=== PATIENT | male | born 1955 | race Caucasian/White ===

== ENCOUNTER 2018-02-05 21:59 | Emergency (ER) | payer OTHER ==
[~2018-02-05] VITALS: Ht 188 cm; Wt 149.7 kg
--- OUTSIDE RECORDS SUMMARY | 2018-02-05 22:02 | XMS REPORT | Summary of Care ---
Author Author [facility] Address Unknown Phone Unavailable Encounter HQ Esperanza(FIN) [id number] Date(s): 05/20/17 - 05/20/17 [place] [address] [facility], [address] [place] [address]- [phone] Discharge Disposition: Home or Self Care Attending Physician: Albaro Gilbert DO Vital Signs Most recent to 1 oldest [Reference Range]: Height 187.96 cm (05/20/17 4:28 PM) Temperature Oral 98.0 DegF [96.4-99.1 DegF] (05/20/17 4:28 PM) Blood Pressure 158/94 mmHg [90-140/60-90 mmHg] *HI* (05/20/17 4:28 PM) Peripheral Pulse 76 bpm Rate [60-100 bpm] (05/20/17 4:28 PM) Weight 156.818 kg (05/20/17 4:28 PM) Body Mass Index 44.39 m2 (05/20/17 4:28 PM) Problem List Condition Effective Dates Status Health Status Informant Diabetes(Confirmed) Active Diabetes(Confirmed) Resolved Dyslipidemia(Confirm Active ed) Dyslipidemia(Confirm Resolved ed) HTN Resolved (hypertension)(Confi rmed) Obesities, Active morbid(Confirmed) Allergies, Adverse Reactions, Alerts Substance Reaction Severity Status morphine Active Medications Azithromycin 5 Day Dose Pack 250 mg oral tablet See Instructions, Take 2 tablets by mouth the first day then 1 tablet by mouth d ays 2-5., X 5 day, # 6 tab, 0 Refill(s), Pharmacy: [id number] Start Date: 05/20/17 Stop Date: 05/25/17 Status: Completed Results No data available for this section Immunizations No data available for this section Procedures Procedure Date Related Diagnosis Body Site Status Appendectomy Completed Hernia repair Completed Tonsillectomy Completed Social History Social History Type Response Smoking Status Never smoker; Exposure to Tobacco Smoke None; Cigarette Smoking Last 365 Days No; Reg Smoking Cessation Counseling No entered on: 05/20/17 Assessment and Plan No data available for this section
--- OUTSIDE RECORDS SUMMARY | 2018-02-05 22:02 | XMS REPORT | Summary of Care ---
Author Author [facility] Organization [facility] Address Unknown Phone Unavailable Encounter HQ Hannah_liyah(FIN) [id number] Date(s): 11/11/16 - 11/11/16 [facility] [address] [place] [address]- Discharge Disposition: Home or Self Care Attending Physician: Jacque Herrmann MD Vital Signs No data available for this section Problem List Condition Effective Dates Status Health Status Informant Diabetes(Confirmed) Active Diabetes(Confirmed) Resolved Dyslipidemia(Confirm Active ed) Dyslipidemia(Confirm Resolved ed) HTN Resolved (hypertension)(Confi rmed) Obesities, Active morbid(Confirmed) Allergies, Adverse Reactions, Alerts Substance Reaction Severity Status morphine Active Medications No data available for this section Results No data available for this section Immunizations No data available for this section Procedures Procedure Date Related Diagnosis Body Site Appendectomy Hernia repair Tonsillectomy Social History Social History Type Response Smoking Status Never smoker; Exposure to Tobacco Smoke None; Cigarette Smoking Last 365 Days No; Reg Smoking Cessation Counseling No Assessment and Plan No data available for this section
--- OUTSIDE RECORDS SUMMARY | 2018-02-05 22:02 | XMS REPORT | Summary of Care ---
Author Author [facility] Organization [facility] Address Unknown Phone Unavailable Encounter HQ Encntr_alias(FIN) [id number] Date(s): 05/16/17 - 05/17/17 [place] [address] [facility], [address] [place] [address]- [phone] Vital Signs No data available for this section Problem List Condition Effective Dates Status Health Status Informant Diabetes(Confirmed) Active Diabetes(Confirmed) Resolved Dyslipidemia(Confirm Active ed) Dyslipidemia(Confirm Resolved ed) HTN Resolved (hypertension)(Confi rmed) Obesities, Active morbid(Confirmed) Allergies, Adverse Reactions, Alerts Substance Reaction Severity Status morphine Active Medications losartan 100 mg oral tablet 100 mg=1 tab, PO, Daily, # 90 tab, 1 Refill(s), Pharmacy: [facility] [id number] [facility] Start Date: 05/19/17 Status: Ordered Results No data available for this section [...]
--- OUTSIDE RECORDS SUMMARY | 2018-02-05 22:02 | XMS REPORT | Summary of Care ---
Author Author [facility] Organization [facility] Address Unknown Phone Unavailable Encounter HQ Encntr_alias(FIN) [id number] Date(s): 06/24/17 - 06/25/17 [place] [address] [facility], [address] [place] [address]- [phone] Vital Signs No data available for this section Problem List Condition Effective Dates Status Health Status Informant Diabetes(Confirmed) Active Diabetes(Confirmed) Resolved Dyslipidemia(Confirm Active ed) Dyslipidemia(Confirm Resolved ed) HTN Resolved (hypertension)(Confi rmed) Obesities, Active morbid(Confirmed) Allergies, Adverse Reactions, Alerts Substance Reaction Severity Status morphine Active Medications simvastatin 40 mg oral tablet 40 mg=1 tab, PO, Bedtime, # 90 tab, 1 Refill(s), Pharmacy: [facility] [id number] [facility] Start Date: 06/24/17 Status: Ordered Results No data available for [...]
--- OUTSIDE RECORDS SUMMARY | 2018-02-05 22:02 | XMS REPORT | Summary of Care ---
Author Author [facility] Organization [facility] Address Unknown Phone Unavailable Encounter HQ Encntr_alias(FIN) [id number] Date(s): 04/01/17 - 04/02/17 [place] [address] [facility], [address] [place] [address]- [phone] Vital Signs No data available for this section Problem List Condition Effective Dates Status Health Status Informant Diabetes(Confirmed) Active Diabetes(Confirmed) Resolved Dyslipidemia(Confirm Active ed) Dyslipidemia(Confirm Resolved ed) HTN Resolved (hypertension)(Confi rmed) Obesities, Active morbid(Confirmed) Allergies, Adverse Reactions, Alerts Substance Reaction Severity Status morphine Active Medications carvedilol 25 mg oral tablet See Instructions, # 180 tab, TAKE 1 TABLET BY MOUTH TWICE DAILY, Pharmacy: [id number] Start Date: 04/01/17 Status: Ordered metFORMIN 500 mg oral tablet See Instructions, # 180 tab, TAKE ONE TABLET BY MOUTH TWICE DAILY, Pharmacy: [facility] [id number] [facility] Start Date: 04/01/17 Status: Ordered Results No data available for [...]
--- OUTSIDE RECORDS SUMMARY | 2018-02-05 22:02 | XMS REPORT | Summary of Care ---
Author Author [facility] Primary [facility] Address Unknown Phone Unavailable Encounter HQ Encntr_alias(FIN) [id number] Date(s): 02/24/17 - 02/25/17 [facility] [address] [place] [address] [phone] Vital Signs No data available for this section Problem List Condition Effective Dates Status Health Status Informant Diabetes(Confirmed) Active Diabetes(Confirmed) Resolved Dyslipidemia(Confirm Active ed) Dyslipidemia(Confirm Resolved ed) HTN Resolved (hypertension)(Confi rmed) Obesities, Active morbid(Confirmed) Allergies, Adverse Reactions, Alerts Substance Reaction Severity Status morphine Active Medications Victoza 18 mg/3 mL subcutaneous injection See Instructions, INJECT 1.2MG UNDER THE SKIN DAILY IN THE MORNING., # 6 syr, 3 Refill(s), Pharmacy: [facility] [id number] [facility] Start Date: 02/24/17 Status: Ordered Results No data available for [...]
--- OUTSIDE RECORDS SUMMARY | 2018-02-05 22:02 | XMS REPORT | Continuity of Care Document ---
Author Author [facility] Address Unknown Phone Unavailable Problems Problem Status Onset Date Classification Date Reported Comments Source J20.9 Active 10/18/2016 [facility] Diabetes Active Problem 08/26/2017 [facility] Dyslipidemia Active Problem 08/26/2017 [facility] HTN (<span ID="[id number]">Confirmed</span>) Resolved Problem 08/26/2017 [facility] Obesities, morbid Active Problem 08/26/2017 [facility] Medications Medication Details Route Status Patient Instructions Ordering Provider Order Date Source NovoFine Insulin Pen [place] 32G 6 mm=1/4 inch See Instructions, MISC BID, # 2 box, 1 Refill(s) Active 07/23/2017 [facility] NovoFine Insulin Pen [place] 32G 6 mm=1/4 inch 1 ea, MISC, BID, # 100 ea, 3 Refill(s) Inactive 07/23/2017 [facility] simvastatin 40 mg oral tablet 40 mg=1 tab, PO, Bedtime, # 90 tab, 1 Refill(s), Pharmacy: [facility] Active 06/25/2017 [facility] Azithromycin 5 Day Dose Pack 250 mg oral tablet See Instructions, Take 2 tablets by mouth the first day then 1 tablet by mouth days 2-5., X 5 day, # 6 tab, 0 Refill(s), Pharmacy: [facility] No Longer Active 05/20/2017 [facility] losartan 100 mg oral tablet 100 mg=1 tab, PO, Daily, # 90 tab, 1 Refill(s), Pharmacy: [facility] Active 05/19/2017 [facility] Metformin hydrochloride 500 MG Oral Tablet See Instructions, # 180 tab, TAKE ONE TABLET BY MOUTH TWICE DAILY, Pharmacy: [facility] Active 04/01/2017 [facility] carvedilol 25 mg oral tablet See Instructions, # 180 tab, TAKE 1 TABLET BY MOUTH TWICE DAILY, Pharmacy: [facility] Active 04/01/2017 [facility] 3 ML liraglutide 6 MG/ML Prefilled Syringe [Victoza] See Instructions, INJECT 1.2MG UNDER THE SKIN DAILY IN THE MORNING., # 6 syr, 3 Refill(s), Pharmacy: [facility] [id number] [facility] Active 02/24/2017 [facility] Allergies, Adverse Reactions, Alerts Substance Category Reaction Severity Reaction type Status Date Reported Comments Source morphine Assertion Drug allergy Active [facility] Immunizations Immunization Date Given Site Status Last Updated Comments Source Results Order Name Results Value Reference Range Date Interpretation Comments Source Chest 2 views DX Chest 2 views DX Chest 2 views DX CLINICAL HISTORY: - J20.9 Acute bronchitis, unspecified COMPARISON: none FINDINGS: SUPPORT DEVICES: none LUNGS: Lungs are reasonably well inflated. No consolidation or any significant effusion. No pneumothorax is evident. CARDIOVASCULAR: Cardiac silhouette size is normal. Pulmonary vasculature is within normal limits. MEDIASTINUM/MERARY: Trachea is midline. No contour abnormality is noted. OSSEOUS STRUCTURES: No acute bony abnormality is noted. SOFT TISSUES: No significant soft tissue abnormality is noted. IMPRESSION: No acute abnormality is noted. SL: [id number] 11/11/2016 - - Read by: Finn Ferreira MD Dictated Date/time: 11/11/16 14:46 Electronically Signed by: Finn Ferreira MD 11/11/16 14:47 FINAL REPORT [facility] Vital Signs Vital Sign Value Date Comments Source Temperature Oral (F) 98.0 F 05/20/2017 [facility] Heart Rate 76 05/20/2017 [facility] Systolic (mm Hg) 158 05/20/2017 [facility] Diastolic (mm Hg) 94 05/20/2017 [facility] Height 187.96 cm 05/20/2017 [facility] BMI Calculated 44.39 05/20/2017 [facility] Weight 156.818 05/20/2017 [facility] Encounters Location Location Details Encounter Type Encounter Number Reason For Visit Attending Provider ADM Date DC Date Status Source Outpatient [id number] LUIZA COLINDRES 03/17/2015 Active [facility] Outpatient [id number] LUIZA COLINDRES 07/06/2015 Active [facility] Outpatient [id number] KYARA ISMAIL 12/08/2015 Active [facility] Outpatient [id number] LUIZA COLINDRES 08/29/2016 Active [facility] Outpatient [id number] LUIZA COLINDRES 10/01/2016 Active [facility] Outpatient [id number] MARKELLPR ISMAIL 11/11/2016 Active [facility] Outpatient [id number] [facility] 11/11/2016 11/12/2016 [facility] Primary [facility] Phone Message [id number] 02/24/2017 02/26/2017 [facility] Primary [facility] Phone Message [id number] 04/01/2017 04/03/2017 [facility] Primary [facility] Phone Message [id number] 05/16/2017 05/18/2017 [facility] Outpatient [id number] LUIZA PRANGLE 05/20/2017 Active [facility] Outpatient [id number] Luiza Prangle 05/20/2017 05/21/2017 [facility] Phone Message [id number] 06/24/2017 06/26/2017 [facility] Primary [facility] Phone Message [id number] 07/23/2017 07/25/2017 [facility] Primary [facility] Phone Message [id number] 07/23/2017 07/25/2017 [facility] Outpatient [id number] LUIZA PRANGLE 11/04/2017 Active [facility] Procedures Procedure Code Date Perfomer Comments Source Appendectomy [id number] [facility] Hernia repair [id number] [facility] Tonsillectomy [id number] [facility] Appendectomy [id number] [facility] Hernia repair [id number] [facility] Tonsillectomy [id number] [facility]
--- OUTSIDE RECORDS SUMMARY | 2018-02-05 22:02 | XMS REPORT | Summary of Care ---
Author Author [facility] Address Unknown Phone Unavailable Encounter HQ Encntr_alias(FIN) [id number] Date(s): 02/24/17 - 02/25/17 [facility] [address] [place] [address]- [phone] Vital Signs No data available for this [...] MORNING., # 6 syr, 3 Refill(s), Pharmacy: [facility] [id number] [facility] Start Date: 02/24/17 Status: Ordered [...] Reg Smoking Cessation Counseling No entered on: 11/11/16 Assessment and Plan No data available for this section
--- OUTSIDE RECORDS SUMMARY | 2018-02-05 22:02 | XMS REPORT | Summary of Care ---
Author Author [facility] Organization [facility] Address Unknown Phone Unavailable Encounter HQ Encntr_alias(FIN) [id number] Date(s): 07/23/17 - 07/24/17 [place] [address] [facility], [address] [place] [address]- [phone] Vital Signs No data available for this section Problem List Condition Effective Dates Status Health Status Informant Diabetes(Confirmed) Active Diabetes(Confirmed) Resolved Dyslipidemia(Confirm Active ed) Dyslipidemia(Confirm Resolved ed) HTN Resolved (hypertension)(Confi rmed) Obesities, Active morbid(Confirmed) Allergies, Adverse Reactions, Alerts Substance Reaction Severity Status morphine Active Medications NovoFine Insulin Pen [place] 32G 6 mm=1/4 inch See Instructions, MISC BID, # 2 box, 1 Refill(s) Start Date: 07/23/17 Status: Ordered Results No data available for [...]
--- OUTSIDE RECORDS SUMMARY | 2018-02-05 22:02 | XMS REPORT | Summary of Care ---
Author Author [facility] Organization [facility] Address Unknown Phone Unavailable Encounter HQ Encntr_alias(FIN) [id number] Date(s): 06/24/17 - 06/25/17 [place] [address] [facility], [address] [place] [address]- [phone] Vital Signs No data available for this section Problem List Condition Effective Dates Status Health Status Informant Diabetes(Confirmed) Active Diabetes(Confirmed) Resolved Dyslipidemia(Confirm Active ed) Dyslipidemia(Confirm Resolved ed) HTN Resolved (hypertension)(Confi rmed) Obesities, Active morbid(Confirmed) Allergies, Adverse Reactions, Alerts Substance Reaction Severity Status morphine Active Medications simvastatin 40 mg oral tablet 40 mg=1 tab, PO, Bedtime, # 90 tab, 1 Refill(s), Pharmacy: [facility] [id number] [facility] Start Date: 06/24/17 Status: Ordered [...]
--- OUTSIDE RECORDS SUMMARY | 2018-02-05 22:02 | XMS REPORT | Summary of Care ---
Author Author [facility] Organization [facility] Address Unknown Phone Unavailable Encounter HQ Encntr_alias(FIN) [id number] Date(s): 07/23/17 - 07/24/17 [place] [address] [facility], [address] [place] [address]- [phone] Vital Signs No data available for this section Problem List Condition Effective Dates Status Health Status Informant Diabetes(Confirmed) Active Diabetes(Confirmed) Resolved Dyslipidemia(Confirm Active ed) Dyslipidemia(Confirm Resolved ed) HTN Resolved (hypertension)(Confi rmed) Obesities, Active morbid(Confirmed) Allergies, Adverse Reactions, Alerts Substance Reaction Severity Status morphine Active Medications NovoFine Insulin Pen [place] 32G 6 mm=1/4 inch 1 ea, MISC, BID, # 100 ea, 3 Refill(s) Start Date: 07/23/17 Stop Date: 07/23/17 Status: Discontinued Results No data available for this section [...]
[2018-02-05] MEDS ORDERED: DIPHTH/TETANUS/ACEL. PERTUSSIS 0.5 ML SYR IM ONE (23:00)
--- NOTE | 2018-02-05 23:14 | Diagnostic Imaging Report ---
HAND 3 VIEW RT - HOPD Comparison: None Clinical history: Dogbite fourth digit Findings: Triscaphe degenerative changes. No fracture or dislocation. There is a 3 mm linear radiopaque density along the ventral aspect of the distal fourth digit. Vascular calcifications. Impression: Linear radiopaque density along the ventral soft tissues of the distal fourth digit. No acute bony abnormality. Signed by: Dr Aminah Rodrigues MD on 02/05/2018 11:11 PM
[2018-02-06] MEDS ORDERED: CLINDAMYCIN PHOS 900MG/ 50ML 50 ML IV SCH
[2018-02-06 00:12] VITALS: BP 146/86
== END 2018-02-06 00:31 | disposition home or self-care (01) ==
LOC: FSED 21:59
DX: S61.254A Open bite of right ring finger without damage to nail, initial encounter (principal); S61.256A Open bite of right little finger without damage to nail, initial encounter; W54.0XXA Bitten by dog, initial encounter; Y92.008 Other place in unspecified non-institutional (private) residence as the place of occurrence of the external cause; I10 Essential (primary) hypertension; E11.9 Type 2 diabetes mellitus without complications; E78.5 Hyperlipidemia, unspecified
CPT/HCPCS: 99284

== ENCOUNTER 2022-03-05 22:50 | Emergency (ER) | payer OTHER ==
[~2022-03-05] VITALS: Ht 188 cm; Wt 149.7 kg
[2022-03-05] MEDS ORDERED: ONDANSETRON HCL INJ 2MG/ML 2ML 2 MG/ML VIAL IV STA (22:58)
[2022-03-05] MEDS ORDERED: ASPIRIN 81 MG CHEW TAB PO ONE (23:00)
[2022-03-05] MEDS ORDERED: NITROGLYCERIN 2% OINT 1 GM PKT TOP ONE (23:00)
[2022-03-05 23:11] LABS: BASOPHILS % 0.1 % (0.0-1.0); HEMATOCRIT 45.6 % (38.2-49.6); HEMOGLOBIN 14.4 g/dL (14.0-18.0); LYMPHOCYTES # (AUTO) 0.5 (1.0-3.2); LYMPHOCYTES % 5.3 % (18.0-39.1); MEAN CORPUSCULAR HEMOGLOBIN 32.5 pg (28-32); MEAN CORPUSCULAR HGB CONC 31.6 g/dL (31-35); MEAN CORPUSCULAR VOLUME 102.9 fL (81-99); MONOCYTES # (AUTO) 0.1 (0.2-0.8); MONOCYTES % 1.4 % (4.4-11.3); NEUTROPHILS % 92.7 % (38.7-80.0); PLATELET COUNT 242 x10e3/uL (140-360); RED BLOOD COUNT 4.43 x10e6/uL (4.3-5.7); RED CELL DISTRIBUTION WIDTH 11.5 % (11.7-14.4)
[2022-03-05] MEDS ORDERED: ONDANSETRON HCL INJ 2MG/ML 2ML 2 MG/ML VIAL ONE (23:17)
[2022-03-05] MEDS ORDERED: ASPIRIN 81 MG CHEW TAB ONE (23:17)
[2022-03-05 23:31] LABS: ANION GAP 20.5 mmol/L (8-16); CALCIUM 9.7 mg/dL (8.4-10.2); CREATININE, SERUM 1.45 mg/dL (0.72-1.25); POTASSIUM 4.5 mmol/L (3.5-5.1)
[2022-03-05] MEDS ORDERED: TAMIFLU6 MG/1 ML PO (23:34)
[2022-03-05 23:38] LABS: CREATINE KINASE MB 2.9 ng/mL (0-5.0)
[2022-03-06 01:05] LABS: CREATINE KINASE MB 6.7 ng/mL (0-5.0)
[2022-03-06] MEDS ORDERED: CLOPIDOGREL BISULFATE 75 MG TAB ONE (01:29)
[2022-03-06] MEDS ORDERED: HEPARIN 25,000 UNIT DRIP IV ONE (01:29)
[2022-03-06] MEDS ORDERED: METOPROLOL TARTRATE INJ 1 MG/ML VIAL ONE (01:30)
[2022-03-06] MEDS ORDERED: HEPARIN SOD (PORCINE) 5,000 UNIT/ML VIAL ONE (01:41)
[2022-03-06 02:59] LABS: INR 0.93; PARTIAL THROMBOPLASTIN TIME 30.9 seconds (23.8-35.5); PROTHROMBIN TIME 12.7 seconds (11.9-14.5)
[2022-03-06] MEDS ORDERED: HEPARIN 25,000 UNIT 25,000 UNIT in DEXTROSE 5% 250ML 250 ML IV SCH (03:00)
[2022-03-06] MEDS ORDERED: HEPARIN SOD (PORCINE) 5,000 UNIT/ML VIAL IV ONE (03:00)
[2022-03-06] MEDS ORDERED: CLOPIDOGREL BISULFATE 75 MG TAB PO ONE (03:00)
[2022-03-06] MEDS ORDERED: METOPROLOL TARTRATE INJ 1 MG/ML VIAL IV ONE (03:00)
[2022-03-06 05:33] VITALS: BP 178/95
== END 2022-03-06 05:20 | disposition other institution (70) ==
LOC: ER 22:54
DX: R07.9 Chest pain, unspecified (principal); I21.4 Non-ST elevation (NSTEMI) myocardial infarction; E11.65 Type 2 diabetes mellitus with hyperglycemia; I10 Essential (primary) hypertension; R94.31 Abnormal electrocardiogram [ECG] [EKG]; Z20.822 Contact with and (suspected) exposure to COVID-19; Z85.818 Personal history of malignant neoplasm of other sites of lip, oral cavity, and pharynx
CPT/HCPCS: 36415; 71045; 80053; 80320; 82550; 82553; 82948; 83690; 84484; 85025; 85610; 85730; 93005; 99284; C9113; J1644; J2405; U0002

== ENCOUNTER 2024-10-01 12:33 | Emergency (ER) | payer OTHER ==
[~2024-10-01] VITALS: Ht 188 cm; Wt 148.5 kg
[~2024-10-01 12:33] MED LIST: TAMIFLU6 MG/1 ML PO
[2024-10-01] MEDS ORDERED: DEXAMETHASONE SOD PHOS INJ 4 MG/ML SDV ONE (13:12)
[2024-10-01] MEDS ORDERED: DIPHENHYDRAMINE HCL INJ 50 MG/ML VIAL ONE (13:13)
[2024-10-01] MEDS ORDERED: DEXAMETHASONE SOD PHOS 10 MG/1 ML VIAL IV ONE (13:15)
[2024-10-01] MEDS ORDERED: DIPHENHYDRAMINE HCL 25 MG CAP PO ONE (13:15)
[2024-10-01] MEDS: ALBUTEROL/IPRATROPIUM 3 ML NEB NEB ONE (13:32)
[2024-10-01] MEDS: FAMOTIDINE 20 MG/2 ML VIAL IV STA (13:33)
[2024-10-01] MEDS: DEXAMETHASONE SOD PHOS INJ 4 MG/ML SDV IV ONE (13:33)
[2024-10-01] MEDS: DIPHENHYDRAMINE HCL INJ 50 MG/ML VIAL IV ONE (13:34)
[2024-10-01 13:47] VITALS: PULSE 75; RESP 18
[2024-10-01] MEDS ORDERED: LOSARTAN POTAS100 MG PO (13:55)
[2024-10-01] MEDS ORDERED: RYBELSUS14 MG (13:55)
[2024-10-01] MEDS ORDERED: ASPIRIN EC81 MG PO (13:55)
[2024-10-01] MEDS ORDERED: COREG12.5 MG PO (13:55)
[2024-10-01] MEDS ORDERED: WARFARIN SODIUM3 MG PO (13:55)
[2024-10-01] MEDS ORDERED: METFORMIN HCL500 M2 PO (13:55)
[2024-10-01 14:26] VITALS: PULSE 75; RESP 18; TEMP 97.8; O2SAT 97
[2024-10-01] MEDS ORDERED: VENTOLIN HFA18 GM INH (14:26)
[2024-10-01] MEDS ORDERED: ACID REDUCER20 MG PO (14:27)
== END 2024-10-01 14:31 | disposition home or self-care (01) ==
LOC: FSED 12:43
DX: L50.9 Urticaria, unspecified (principal); T78.40XA Allergy, unspecified, initial encounter; I10 Essential (primary) hypertension; E11.9 Type 2 diabetes mellitus without complications; Z85.818 Personal history of malignant neoplasm of other sites of lip, oral cavity, and pharynx
CPT/HCPCS: 80053; 85025; 96374; 96375; 99283; J1100; J1200; J1308